=== PATIENT | male | born 1980 | race African-American/Black ===

== ENCOUNTER 2025-07-20 04:18 | Emergency (ER) | payer OTHER ==
[~2025-07-20] VITALS: Ht 180.3 cm; Wt 119.0 kg
[2025-07-20 06:30] VITALS: BP 118/76; O2SAT 100
[2025-07-20] MEDS: KETOROLAC 30 MG/ML 1 ML VIAL IM ONE (06:42)
[2025-07-20] MEDS ORDERED: METH-1165 PO (06:44)
[2025-07-20] MEDS ORDERED: MELO5CAP2 PO (06:44)
[2025-07-20 06:55] VITALS: TEMP 97.1
== END 2025-07-20 07:13 | disposition home or self-care (01) ==
LOC: M ED 04:18
DX: M54.50 Low back pain, unspecified (principal); Z79.899 Other long term (current) drug therapy
CPT/HCPCS: 96372; 99284; J1885